=== PATIENT | male | born 1980 | race Caucasian/White ===

== ENCOUNTER 2018-04-09 21:01 | Emergency (ER) | payer OTHER ==
[~2018-04-09] VITALS: Ht 170.2 cm; Wt 63.5 kg
[2018-04-09 21:08] VITALS: BP 160/102
== END 2018-04-09 23:22 | disposition home or self-care (01) ==
LOC: ER 21:01
DX: F10.129 Alcohol abuse with intoxication, unspecified (principal)

== ENCOUNTER 2018-09-03 13:10 | Inpatient (IN) | payer OTHER ==
[~2018-09-03] VITALS: Ht 180.3 cm; Wt 59.1 kg
[2018-09-03 13:11] VITALS: BP 171/96
[2018-09-03] MEDS ORDERED: LEXAPRO 10 MG T10 M2 PO (13:31)
[2018-09-03 13:47] LABS: URINE CLARITY CLEAR; URINE COLOR YELLOW
[2018-09-03 13:48] LABS: URINE BILIRUBIN NEGATIVE (Negative); URINE GLUCOSE-RANDOM* NEGATIVE (Negative); URINE KETONES 2+ (Negative); URINE LEUKOCYTES-REFLEX NEGATIVE (Negative); URINE NITRITE-REFLEX NEGATIVE (Negative); URINE PROTEIN (DIPSTICK) 2+ (Negative); URINE SPECIFIC GRAVITY >= 1.030 (1.005-1.035); URINE UROBILINOGEN 0.2 E.U./dl (0.2-1.0)
[2018-09-03 13:49] LABS: URINE BLOOD TRACE (Negative)
[2018-09-03 13:53] LABS: AMP/METHAMP Negative (Negative); BARBITURATES Negative (Negative); BENZODIAZEPINES Negative (Negative); COCAINE Negative (Negative); METHADONE Negative (Negative); OPIATES Negative (Negative); PCP Negative (Negative)
[2018-09-03 13:56] LABS: BACTERIA-REFLEX 1-9 Few /HPF (None Seen); FINE GRANULAR CASTS 0-3 Few /LPF (None Seen); HYALINE CASTS 0-3 Few /LPF (None Seen); MUCUS 0-3 Light strn/LPF (None Seen); SQUAMOUS 0-3 Few /LPF (0-3); URINE RBC 0-2 Rare /HPF (0-2); URINE WBC-REFLEX 0-5 Rare /HPF (0-5)
--- NOTE | 2018-09-03 14:16 | NUR ---
PER DR MAY, NO CO NEEDED FOR THIS PT.
[2018-09-03 14:20] LABS: HEMATOCRIT 43.7 % (42.0-52.0); HEMOGLOBIN 15.4 gm/dL (14.0-18.0); MCHC 35.2 g/dL (28.0-37.0); MCV 99.6 fL (80.0-100.0); RBC 4.39 mil/uL (4.50-6.00); RDW 13.5 % (10.5-14.5); WBC 5.1 thou/uL (4.0-11.0)
[2018-09-03 14:24] LABS: CRYSTALS None Seen /LPF (None Seen)
[2018-09-03 14:31] LABS: ANION GAP 21 mmol/L (7-16); BUN 13 mg/dL (7-18); CALCIUM 9.4 mg/dL (8.5-10.1); CHLORIDE 94 mmol/L (98-107); CO2 20 mmol/L (21-32); CREATININE 0.7 mg/dL (0.7-1.3); GLUCOSE 67 mg/dL (74-106); POTASSIUM 4.3 mmol/L (3.5-5.1); SALICYLATE < 2.8 mg/dL (2.8-20.0); SODIUM 135 mmol/L (136-145)
[2018-09-03 18:05] VITALS: BP 118/65
[2018-09-03 18:30] VITALS: BP 138/74
[2018-09-03 19:15] VITALS: BP 132/85
[2018-09-04 00:20] VITALS: BP 122/77
--- NOTE | 2018-09-04 00:33 | NUR ---
PATIENT WAS ADMITTED TO THE UNIT SHORTLY BEFORE SHIFT CHANGE. HE ARRIVED VIA CART FROM THE ER AND WAS ABLE TO AMBULATE TO THE BED INCIDENT FREE. PATIENT WILL BE CONSIDERED A HIGH FALL RISK DUE TO STATED WEAKNESS AND MEDICATIONS BEING ADMINISTERED. PATIENT IS BEING TREATED FOR ALCOHOL WITHDRAWAL AND IS SCORING AROUND 8 ON CIWA WHICH IS BEING FOLLOWED PER PROTOCOL. PATIENT HAS BEEN MOVED CLOSER TO NURSES STATION FOR HIS SAFETY. THIS RN HAS COMPLETED ADMISSION AND INITIATED CARE PLAN.
[2018-09-04 04:30] VITALS: BP 129/88
[2018-09-04 07:53] VITALS: BP 122/84
[2018-09-04 11:31] VITALS: BP 125/85
--- NOTE | 2018-09-04 14:50 | NUR ---
Nutrition: Seen due to consult received. Also noted BMI 18.2 with current weight of 130# reportedly incorrect. Pt reports stable weights around 160#. States he has been eating fine, however noted BG level of 67 on admit. Daily ETOH. Psych consult for possible admit to inpatient ETOH tx facility. Currently on ETOH withdrawal protocol. Slept majority of day and has not ate yet. Encouraged adequate nutrition and explained ordering meals/voicing food preferences as desired. On /thiamine/IVFs. Low risk at this time.
[2018-09-04 16:21] VITALS: BP 128/87
--- NOTE | 2018-09-04 18:08 | NUR ---
ASsumed care of Pt at 0700. Pt AOx4, actively withdrawing, asking for to smoke cigarette. CIWA 14-19. Ativan given for some relief. threatening to leave AMA. able to talk with mom on phone - now agreeable with staying. nicotine patch on. ssri resumed per physician. up w/ SBA. unsteady. NSR/SB. slow progres toward poc goals.
[2018-09-04 19:02] VITALS: BP 145/97
[2018-09-05 04:20] VITALS: BP 147/92
--- NOTE | 2018-09-05 07:06 | NUR ---
PT WAS HIGHLY AGGITATATED EARLY IN THE EVENING. CIWA WAS 15. GAVE APPROPRIATE AMOUNTS OF ATIVAN TO GET PT IN A MORE RESTFULL STATE. ALSO GOT A ONE TIME DOSE OF HALIDOL. PT WAS CAUGHT SMOKING IN BATHROOM. PT STATED OVER AND OVER IM GOING "IM LEAVING AMA". HOURLY ROUNDING.
--- NOTE | 2018-09-05 07:59 | NUR ---
PT IRRITATED, AGITATED, LOOKING FOR HIS CLOTHING TO GET DRESSED AND GO HOME. CIWA-16, PACING IN ROOM AND STANDING IN HIS DOORWAY TO REQUEST HIS CLOTHING FROM THE SHIRT IRONER SUPERVISOR. SECURITY CALLED/PRESENT. PT TOOK THE PO ATIVAN & RETURNED TO BED SPONTANEOUSLY.
--- NOTE | 2018-09-05 08:39 | NUR ---
PT STANDING AT NURSES DESK REQUESTING HIS CLOTHING AND TO GO HOME. CALL PLACED TO HIS MOTHER TO SPEAK WITH HER SON & HE SPOKE WITH HER. PT PUTTING ON HIS CLOTHING. CALL PLACED TO DR. MARTINEZ REGARDING PT STATUS. THE MOTHER PER PHONE CALL STATED, "WHEN HE LEAVES HE RETURNES TO HIS APARTMENT WHICH IS JUST ACROSS FROM [place]. HE NEEDS INPATIENT DETOX".
--- NOTE | 2018-09-05 08:50 | NUR ---
PT SPOKE WITH HIS MOTHER & HAS AGREED TO STAY ANOTHER DAY.
--- NOTE | 2018-09-05 09:15 | NUR ---
DR. MARTINEZ PRESENT TO SEE PT. PT IS RISK TO SELF, UNABLE TO LEAVE AND TO BE HELD. DR. SANCHEZ PAGED TO UPDATED ON PT STATUS. PT RESTING IN BED AT THIS TIME.
--- NOTE | 2018-09-05 10:42 | NUR ---
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
--- NOTE | 2018-09-05 13:00 | NUR ---
PT AWAKENED WHEN CASE MANAGEMENT IN TO TALK WITH PT. UNABLE TO KEEP PT FROM PUTTING ON HIS SHIRT AND SHOES. TREMORING, GAIT VERY UNSTEADY. PT PLANS TO GO HOME. CIWA-16. AMBULATED TO BATHROOM WITH ONE ASSIST, VOIDED. RELUCTANTLY BACK TO BED. SEE MARS FOR ATIVAN PO ADMINISTRATION.
--- NOTE | 2018-09-05 13:22 | NUR ---
ASSESSMENT: CM REVIEWED CHART AND MET WITH PATIENT AT THE BEDSIDE. PT REPORTS THAT HE LIVES IN AN APT ALONE AND REPORTS HIS DAUGHTER STAYS WITH AT TIMES. PT REPORTS THAT HE IS FULLY INDEPENDENT WITH ADLS AND AMBULATION. PT WAS ADMITTED WITH ETOH WITHDRAWAL. PT REPORTS THAT HE HAS NEVER BEEN TO AN INPATIENT/OUTPATIENT TREATMENT FOR ETOH ABUSE. CM ASKED PATIENT IF HE WAS WANTING AN INPATIENT TREATMENT PROGRAM AND DISCUSSED SOME OPTIONS. PTS STATES HE DOES NOT WANT AN INPATIENT TREATMENT AND HE WANTS TO GO HOME. CM DISCUSSED OUTPATIENT OPTIONS WITH PATIENT WELL. CM PROVIDED PATIENT WITH ETOH ABUSE RESOURCES INCLUDING [facility]/SAFETY NET CLINICS. CM ALSO PROVIDED PATIENT WITH [facility] CON[facility] [phone] AND LOCATION OF CLOSEST CLINIC TO HIM IN [place] [phone]. THIS CLINIC HAS HOURS OF 9-12 AND -3. CM PROVIDED TO PATIENT AND ALSO DISCUSSED THEY HAVE AN INPATIENT UNIT. PT REPORTS HE IS WANTING TO GO HOME. PSYCH IS TO SEE PATIENT WITH FURTHER RECOMMENDATIONS. PT DOES NOT WANT TO GO TO INPATIENT PSYCH AND WANTS TO GO HOME. CM CONTACTED PATIENTS MOTHER WHO REPORTS THEY HAVE REMOVED THE GUNS FROM PATIENTS APARTMENT AND LOCKED THEM UP. MOTHER FEELS [facility] [place] A GOOD OPTION FOR PATIENT. CM WILL CONTINUE TO FOLLOW TO ASSIST NEEDED PENDING FURTHER PSYCH RECOMMENDATIONS. PT REPORTS THAT
--- NOTE | 2018-09-05 13:35 | NUR ---
PT AGITATED, ANGRY THAT HE IS IN THE HOSPITAL AND WANTS TO GO HOME NOW. PT PACING IN ROOM. DR. SANCHEZ CALLED AT OFFICE WITH THE OFFICE PLACING A STAT PAGE. PT BOLTED OUT OF THE ROOM, STAT CODE MATHIEU INITIATED. SEVERAL STAFF MEMBERS AND SECURITY ABLE TO ESCORT PT BACK TO ROOM. PT PACING.
--- NOTE | 2018-09-05 16:15 | NUR ---
DR. MARTINEZ PRESENT IN AM TO ASSESS PT. HE IS STATING HE WANTS PT HELD IN HOSPITAL (AGAINST PT PLAN TO GO HOME) UNTIL SEEN/ASSESSED BY DR. SANCHEZ. NOW DR. SANCHEZ PRESENT. PT IS WILLING TO STAY VOLUNTARILY UNTIL NOON TOMORROW FOR TREATMENT PREVENTING SEIZURES.
[2018-09-05 17:20] VITALS: BP 152/96
--- NOTE | 2018-09-05 18:00 | NUR ---
SHIFT SUMMARY: SEE CIWA SCALE FOR ALCOHOL WITHDRAW DETAILS. SEE MARS FOR ATIVAN ADMINISTRATION. PT SYMPTOMATIC, THEN ATIVAN PO GIVEN & PT WOULD DOZE OFF TO SLEEP, THEN REST @ 2-3 HRS. ATIVAN GIVEN @ 1302, THEN AT 1400 PT STILL SYMPTOMATIC. ATIVAN IV GIVEN WITH PT SYMPTOMS RESOLVING. PT AMBULATING IN BECKER WITH STANDBY ASSIST OF RN, THEN PT RETURNED TO ROOM. PT REMAINS CONCERNED ABOUT GOING HOME HOWEVER HIS ALCOHOL WITHDRAW SYMPTOMS ARE IMPROVING.
[2018-09-05 18:06] LABS: TRICYCLIC (TCA) CONFIRMATION Negative ng/mL (Cutoff=100)
[2018-09-05 19:50] VITALS: BP 169/87
--- NOTE | 2018-09-06 03:05 | NUR ---
PT VERY MUCH WANTED TO LEAVE THIS EVENING. PT WAS A/0 X4 AND COULD ANSWER ALL QUESTIONS. SAME DISCUSSION LAST NIGHT WITH PT. DISCUSSED ALL OPTIONS WITH PT. HE SAID, "HE HAS ALL THE RESOURCES HE NEEDS."
== END 2018-09-06 02:56 | disposition left against medical advice (07) | DRG 894 ==
LOC: ER 13:10 → 3W 16:38 → EROBS 16:38 → 3W 18:35
PROVIDERS: Emergency Medicine; ADMIT Internal Medicine
DX: F10.239 Alcohol dependence with withdrawal, unspecified (principal); Z60.2 Problems related to living alone; F17.210 Nicotine dependence, cigarettes, uncomplicated; F32.9 Major depressive disorder, single episode, unspecified; F41.9 Anxiety disorder, unspecified; F12.90 Cannabis use, unspecified, uncomplicated; Z53.21 Procedure and treatment not carried out due to patient leaving prior to being seen by health care provider; Z88.8 Allergy status to other drugs, medicaments and biological substances; Z71.6 Tobacco abuse counseling; Z79.899 Other long term (current) drug therapy
CPT/HCPCS: 10879